=== PATIENT | male | born 1995 | race Caucasian/White ===

== ENCOUNTER 2017-10-14 18:54 | Emergency (ER) | payer OTHER ==
--- NOTE | 2017-10-14 19:03 | ER Report ---
History and Physical Time Seen By MD: 19:02 Hx. of Stated Complaint: PAST WEEK CHEST TIGHTNESS, SOB, "CANT CATCH MY BREATH", CHEST TIGHTNESS WORSE IN EVENINGS, DIZZY WITH EXERCISE, NUMBNES /TINGLING IN L ARM HPI/ROS CHIEF COMPLAINT: Chest pain HISTORY OF PRESENT ILLNESS: This is a 22 old male who presents to the emergency department for chest pain. Patient states that this last Monday after drinking a caffeinated beverage he began to have some chest pain and has been intermittent over the course of week. Patient states that he has been exercising which has not increased the pain but during the evening his pain seems to increase in the central part of his chest onto the left lateral side. Patient also states that now he is having some tingling in his left fingers he also states that he has been rockclimbing a bit this week and is not sure if this is related. Patient denies any recent travel, no increased shortness of breath. Patient denies fevers, aches, chills, nausea, vomiting, diarrhea. Patient also states he did see his primary care provider latter part of this week and was scheduled for a Holter monitor however he did miss the appointment and will reschedule for this coming week. REVIEW OF SYSTEMS: Constitutional: No fever, no chills. Eyes: No discharge. ENT: No sore throat. Cardiovascular: As above. Respiratory: No cough, no shortness of breath. Gastrointestinal: No abdominal pain, no vomiting. Genitourinary: No hematuria. Musculoskeletal: As above. Skin: No rashes. Neurological: No headache. Allergies: Coded Allergies: No Known Drug Allergies (Unverified , 10/14/17) Home Meds No Active Prescriptions or Reported Meds Past Medical/Surgical History Patient has a past medical and surgical history of asthma, palpitations, no surgical history. Reviewed Nurses Notes: Yes Constitutional Vital Sign - Last 24 Hours 10/14/17 10/14/17 10/14/17 10/14/17 18:54 18:57 18:59 19:05 Pulse ??? 71 Resp 16 B/P (MAP) 146/88 (107) 146/88 145/90 (108) Pulse Ox 95 O2 Delivery Room Air 10/14/17 10/14/17 10/14/17 10/14/17 19:09 19:24 19:30 19:39 Pulse 65 57 69 Resp 39 10 19 B/P (MAP) 114/81 (92) Pulse Ox 98 98 97 10/14/17 10/14/17 10/14/17 19:54 20:00 20:09 Pulse 63 ??? Resp 27 B/P (MAP) 120/71 (87) Pulse Ox 93 Physical Exam General Appearance: The patient is alert, has no immediate need for airway protection and no signs of toxicity. Eyes: Pupils equal and round no pallor or injection. ENT, Mouth: Mucous membranes are moist. Respiratory: There are no retractions, lungs are clear to auscultation. Cardiovascular: Regular rate and rhythm, no murmurs, clicks or rubs. Gastrointestinal: Abdomen is soft and non tender, no masses, bowel sounds normal. Neurological: Alert and oriented 4. Moving all x-rays. Following all commands. No focal neuro deficits. Skin: Warm and dry, no rashes. Musculoskeletal: Neck is supple non tender. Extremities are nontender, nonswollen and have full range of motion. DIFFERENTIAL DIAGNOSIS: After history and physical exam differential diagnosis was considered for chest pain including but not limited to myocardial ischemia, pericarditis pulmonary embolus, chest wall pain, pleural inflammation and pulmonary infectious causes, anxiety, caffeine induced palpitations. Medical Decision Making Data Points Result Diagram: 10/14/17190410/14/171904 Laboratory Hematology Test 10/14/17 19:05 Red Blood Count 5.51 M/uL (4.00-5.60) Mean Corpuscular Volume 91.3 fL (80.0-96.0) Mean Corpuscular Hemoglobin 31.8 pg (26.0-33.0) Mean Corpuscular Hemoglobin Concent 34.8 g/dL (32.0-36.0) Red Cell Distribution Width 13.3 % (11.5-14.5) Mean Platelet Volume 8.4 fL (7.2-11.1) Neutrophils (%) (Auto) 59.0 % (39.4-72.5) Lymphocytes (%) (Auto) 32.8 % (17.6-49.6) Monocytes (%) (Auto) 6.3 % (4.1-12.4) Eosinophils (%) (Auto) 1.3 % (0.4-6.7) Basophils (%) (Auto) 0.6 % (0.3-1.4) Nucleated RBC Relative Count (auto) 0.1 /100WBC Neutrophils # (Auto) 5.5 K/uL (2.0-7.4) Lymphocytes # (Auto) 3.1 K/uL (1.3-3.6) Monocytes # (Auto) 0.6 K/uL (0.3-1.0) Eosinophils # (Auto) 0.1 K/uL (0.0-0.5) Basophils # (Auto) 0.1 K/uL (0.0-0.1) Nucleated RBC Absolute Count (auto) 0.01 K/uL Sodium Level 138 mmol/L (137-145) Potassium Level 3.4 mmol/L (3.5-5.0) Chloride Level 101 mmol/L (98-107) Carbon Dioxide Level 25 mmol/L (22-30) Blood Urea Nitrogen 16 mg/dl (9-21) Creatinine 1.00 mg/dl (0.66-1.25) Glomerular Filtration Rate Calc > 60.0 Random Glucose 86 mg/dl (75-110) Calcium Level 9.3 mg/dl (8.4-10.2) Total Bilirubin 0.7 mg/dl (0.2-1.3) Aspartate Amino Transf (AST/SGOT) 33 U/L (0-35) Alanine Aminotransferase (ALT/SGPT) 35 U/L (0-56) Alkaline Phosphatase 120 U/L (0-126) Troponin I < 0.012 ng/ml Total Protein 7.6 gm/dl (6.3-8.2) Albumin 4.4 g/dl (3.5-5.0) Chemistry Test 10/14/17 19:05 White Blood Count 9.4 k/uL (4.5-11.0) Red Blood Count 5.51 M/uL (4.00-5.60) Hemoglobin 17.5 g/dL (14.0-18.0) Hematocrit 50.3 % (42.0-52.0) Mean Corpuscular Volume 91.3 fL (80.0-96.0) Mean Corpuscular Hemoglobin 31.8 pg (26.0-33.0) Mean Corpuscular Hemoglobin Concent 34.8 g/dL (32.0-36.0) Red Cell Distribution Width 13.3 % (11.5-14.5) Platelet Count 238 K/uL (150-450) Mean Platelet Volume 8.4 fL (7.2-11.1) Neutrophils (%) (Auto) 59.0 % (39.4-72.5) Lymphocytes (%) (Auto) 32.8 % (17.6-49.6) Monocytes (%) (Auto) 6.3 % (4.1-12.4) Eosinophils (%) (Auto) 1.3 % (0.4-6.7) Basophils (%) (Auto) 0.6 % (0.3-1.4) Nucleated RBC Relative Count (auto) 0.1 /100WBC Neutrophils # (Auto) 5.5 K/uL (2.0-7.4) Lymphocytes # (Auto) 3.1 K/uL (1.3-3.6) Monocytes # (Auto) 0.6 K/uL (0.3-1.0) Eosinophils # (Auto) 0.1 K/uL (0.0-0.5) Basophils # (Auto) 0.1 K/uL (0.0-0.1) Nucleated RBC Absolute Count (auto) 0.01 K/uL Glomerular Filtration Rate Calc > 60.0 Calcium Level 9.3 mg/dl (8.4-10.2) Total Bilirubin 0.7 mg/dl (0.2-1.3) Aspartate Amino Transf (AST/SGOT) 33 U/L (0-35) Alanine Aminotransferase (ALT/SGPT) 35 U/L (0-56) Alkaline Phosphatase 120 U/L (0-126) Troponin I < 0.012 ng/ml Total Protein 7.6 gm/dl (6.3-8.2) Albumin 4.4 g/dl (3.5-5.0) EKG/Imaging EKG Interpretation 12 lead EKG: Time 1915. Rhythm: Sinus bradycardia, ventricular rate 53 bpm. [place]: normal QRS: normal ST segments: No ST depression or elevation noted. Imaging PATIENT NAME: Alfred Miramontes : 1995 MR: [id number] V: [id number] EXAM DATE: ORDERING PHYSICIAN: DWIGHT ADAMS TECHNOLOGIST: Location: [facility] Patient: Alfred Miramontes : 1995 Visit/Account:[id number] Date of : 10/14/2017 CHEST PA AND LAT HISTORY: Chest pain COMPARISON: None FINDINGS: Cardiomediastinal contours: Normal Lungs and pleura: Normal Bones/soft tissues: Normal Other findings: None significant IMPRESSION: 1. Normal chest Report Dictated By: Jacob Abraham MD at 10/14/2017 8:20 PM Report E-Signed By: Jacob Abraham MD at 10/14/2017 8:21 PM WSN:[id number] ED Course/Re-evaluation Clinical Indication for ER IV: IV Access ED Course The patient was admitted to room. History of his work obtained. Differential diagnoses were considered. An IV was started. A CBC, CMP, troponin were obtained. Laboratory studies unremarkable. Negative troponin. An EKG showing normal sinus rhythm no acute ST abnormalities. Two-view chest x-ray showing no acute cardiopulmonary processes. I did review these results with the patient and his mother and did encourage them to follow-up this Monday morning to have the Holter monitor placed. 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 The patient had no other questions or concerns at this time, the patient is pain-free at this time, the tingling in the left hand has subsided. Patient was discharged home. Decision to Disposition Date: Oct 14, 2017 Decision to Disposition Time: 20:42 Depart Departure Latest Vital Signs Vital Signs Date Time Temp Pulse Resp B/P (MAP) Pulse Ox O2 Delivery O2 Flow Rate FiO2 10/14/17 20:09 ??? 10/14/17 20:00 120/71 (87) 10/14/17 19:54 27 93 10/14/17 18:59 Room Air Impression: Primary Impression: Chest pain Condition: Improved Disposition: HOME OR SELF-CARE New Scripts No Active Prescriptions or Reported Meds Patient Instructions: Anxiety (ED), Caffeine Use (ED), Chest Pain (ED) Additional Instructions: Drink plenty of fluids. Get plenty of rest. Avoid Caffeine, which includes Monster drinks. If the TSH is abnormal we will contact you. Please follow up Monday with Cardiopulmonary for placement of the Holter Monitor. Follow up with your PCP next week. May return to the ED for worsening symptoms or any other concerns. Problem Qualifiers Primary Impression: Chest pain Chest pain type: unspecified Qualified Codes: R07.9 - Chest pain, unspecified DWIGHT ADAMS- Oct 14, 2017 19:03
[2017-10-14] MEDS ORDERED: ASPIRIN 81 MG CHEW PO ONE (19:15)
[2017-10-14 19:36] LABS: PLATELET COUNT, AUTOMATED 238 K/uL (150-450)
--- NOTE | 2017-10-14 20:25 | RADIOLOGY IMAGING REPORT ---
FACILITY: [facility] PATIENT NAME: Alfred Miramontes : 1995 MR: [id number] V: [id number] EXAM DATE: ORDERING PHYSICIAN: DWIGHT ADAMS TECHNOLOGIST: [place] [facility] [place]: Alfred Miramontes : 1995 Visit/Account:[id number] Date of Sevice: 10/14/2017 CHEST PA AND LAT HISTORY: Chest pain COMPARISON: None FINDINGS: Cardiomediastinal contours: Normal Lungs and pleura: Normal Bones/soft tissues: Normal Other findings: None significant IMPRESSION: 1. Normal chest Report Dictated By: Jacob Abraham MD at 10/14/2017 8:20 PM Report E-Signed By: Jacob Abraham MD at 10/14/2017 8:21 PM WSN:[id number]
[2017-10-14 20:50] VITALS: BP 117/72
--- NOTE | 2017-10-14 21:12 | EKG ---
FACILITY: [facility] PATIENT NAME: BHANU BERGER : [id number] MR: [id number] V: [id number] EXAM DATE: ORDERING PHYSICIAN: DWIGHT ADAMS TECHNOLOGIST: FERCHO Test Reason : CHEST PAIN Blood Pressure : / mmHG Vent. Rate : 053 BPM Atrial Rate : 053 BPM P-R Int : 140 ms QRS Dur : 092 ms QT Int : 434 ms P-R-T Axes : 077 075 052 degrees QTc Int : 407 ms Sinus bradycardia Otherwise normal ECG No previous ECGs available Confirmed by YESI IVERSON ([id number]) on 10/15/2017 8:57:17 AM Referred By: Confirmed By:YESI IVERSON
== END 2017-10-14 20:57 | disposition home or self-care (01) ==
LOC: ER 18:57
DX: R07.89 Other chest pain (principal); R20.0 Anesthesia of skin; R20.2 Paresthesia of skin
CPT/HCPCS: 71046; 82040; 82247; 82310; 82374; 82435; 82565; 82947; 84075; 84132; 84155; 84295; 84443; 84450; 84460; 84484; 84520; 85025; 93005; 99283

== ENCOUNTER → 2017-10-17 | Outpatient (CLI) | payer OTHER ==
--- NOTE | 2017-10-21 07:40 | RT HOLTER TEST ---
FACILITY: [facility] [place] PATIENT NAME: BHANU BERGER : [id number] MR: [id number] V: [id number] EXAM DATE: ORDERING PHYSICIAN: SINDY LI TECHNOLOGIST: ELIZABETH Hook-up date: 2017-10-17 10:09:00 Duration: 47:45:00 Test Indications: CHEST PAIN, PALPITATIONS Medications: 049582 QRS complexes 4 Ventricular ectopics which represent <1 % of total QRS comp. 432 Supraventricular ectopics which represent <1 % of total QRS comp. * Paced QRS complexes which represent % of total QRS comp. VENTRICULAR ECTOPY 4 Isolated 0 Bigeminal Cycles 0 Couplets 0 Runs 0 Beats in Runs * Beats LONGEST at * BPM at :: -- * Beats FASTEST at * BPM at :: -- SUPRAVENTRICULAR ECTOPY 86 Isolated 69 Couplets 51 Runs 208 Beats in Runs 7 Beats LONGEST at 64 BPM at 07:14:33 2017-10-18 6 Beats FASTEST at 88 BPM at 13:53:46 2017-10-18 HEART RATES 35 MIN at 06:08:16 2017-10-18 64 AVG 172 MAX at 18:26:33 2017-10-18 LONGEST RR 2.024 secs at 04:21:09 2017-10-19 S-T LEVELS Channel 1 -12.800 mm MIN at 10:09:00 2017-10-17 -12.800 mm MAX at 10:09:00 2017-10-17 Channel 2 -12.800 mm MIN at 10:09:00 2017-10-17 -12.800 mm MAX at 10:09:00 2017-10-17 Channel 3 -12.800 mm MIN at 10:09:00 2017-10-17 -12.800 mm MAX at 10:09:00 2017-10-17 Sinus rhythm Sinus tachycardia Confirmed by YESI IVERSON ([id number]) on 10/21/2017 7:39:54 AM Referred By: Overread By: YESI IVERSON
== END ==
LOC: RESP 06:45
PROVIDERS: ATTEND Physician Assistant
DX: R00.2 Palpitations (principal)
CPT/HCPCS: 93225; 93226